=== PATIENT | male | born 1965 | race African-American/Black ===

== ENCOUNTER 2022-03-29 05:46 | Inpatient (IN) ==
[2022-03-29] MEDS ORDERED: VANCOMYCIN INJ 1,000 MG in SODIUM CHLORIDE 0.9% 250 ML IV ONE (06:00)
[2022-03-29 06:34] LABS: INR 0.9; PT Patient Result 10.3 SECS (10.1-12.1); Partial Thromboplastin Time 28.3 SECS (23.7-32.9)
[2022-03-29] MEDS ORDERED: FAMOTIDINE 20 MG TABLET PO ONE (06:34)
[2022-03-29] MEDS ORDERED: GABAPENTIN 400 MG CAPSULE PO ONE (06:34)
[2022-03-29] MEDS ORDERED: DIAZEPAM 5 MG TABLET PO ONE (06:34)
[2022-03-29] MEDS ORDERED: ACETAMINOPHEN 500 MG TABLET PO ONE (06:34)
[2022-03-29] MEDS: LACTATED RINGERS 1,000 ML IV SCH ×2 (06:40→11:02)
[2022-03-29] MEDS ORDERED: BUPIVACAINE SPINAL 0.75% 2 ML AMP SPINAL ONE ×2 (07:02→08:13)
[2022-03-29] MEDS ORDERED: HYDROCORTISONE 100 MG VIAL ONE (07:02)
[2022-03-29] MEDS ORDERED: LIDOCAINE 2% 5 ML VIAL ONE (07:02)
[2022-03-29] MEDS ORDERED: ONDANSETRON 4 MG/2 ML VIAL ONE (07:02)
[2022-03-29] MEDS ORDERED: MIDAZOLAM 2 MG/2 ML VIAL ONE (07:02)
[2022-03-29] MEDS ORDERED: fentaNYL 100 MCG/2 ML VIAL ONE ×3 (07:02→09:14)
[2022-03-29] MEDS ORDERED: SODIUM CHLORIDE 0.9% 100 ML IV ONE (07:03)
[2022-03-29] MEDS ORDERED: buprenorphine HCL 0.3 MG/ML VIAL ONE (07:03)
[2022-03-29] MEDS ORDERED: ROPIVACAINE 0.5% 30 ML VIAL ONE (07:09)
[2022-03-29] MEDS ORDERED: DEXAMETHASONE 4 MG/1 ML VIAL ONE (07:09)
[2022-03-29] MEDS ORDERED: LIDOCAINE 1% 5 ML VIAL ONE (07:09)
[2022-03-29] MEDS ORDERED: TRANEXAMIC ACID 1,000 MG/10 ML VIAL ONE (08:15)
[2022-03-29] MEDS ORDERED: TEMAZEPAM 7.5 MG CAPSULE PO PRN (08:35)
[2022-03-29] MEDS ORDERED: BISACODYL 10 MG SUPP RECTAL PRN (08:35)
[2022-03-29] MEDS ORDERED: PROMETHAZINE 25 MG/1 ML VIAL IM PRN (08:35)
[2022-03-29] MEDS ORDERED: ONDANSETRON 4 MG/2 ML VIAL IV PRN ×2 (08:35→10:25)
[2022-03-29] MEDS ORDERED: diphenhydrAMINE CAP 25 MG CAPSULE PO PRN (08:35)
[2022-03-29] MEDS ORDERED: LACTULOSE 20 GM/30 ML UDCUP PO PRN (08:35)
[2022-03-29] MEDS ORDERED: MORPHINE 2 MG/1 ML SYRINGE IV PRN ×2 (08:35→08:45)
[2022-03-29] MEDS ORDERED: MAGNESIUM HYDROXIDE SUSP 30 ML UDCUP PO PRN (08:35)
[2022-03-29] MEDS ORDERED: ALBUTEROL 2.5 MG/3 ML NEB RESP TX PRN (08:38)
[2022-03-29] MEDS ORDERED: NABUMETONE 500 MG TABLET PO PRN (08:38)
[2022-03-29] MEDS ORDERED: MELOXICAM 7.5 MG TABLET PO PRN (08:38)
[2022-03-29] MEDS ORDERED: PHENYLEPHRINE 1 MG/10 ML SYRINGE IV ONE (09:01)
[2022-03-29] MEDS ORDERED: HYDROmorphone 1 MG/1 ML SYRINGE ONE (10:23)
[2022-03-29] MEDS: HYDROmorphone 1 MG/1 ML SYRINGE IV PRN ×4 (10:27→10:42)
[2022-03-29] MEDS ORDERED: MEPERIDINE 50 MG/1 ML VIAL ONE (10:49)
[2022-03-29] MEDS: MEPERIDINE 25 MG/1 ML VIAL IV PRN ×2 (10:51→11:01)
[2022-03-29] MEDS: FOLIC ACID 1 MG TABLET PO SCH (13:26)
[2022-03-29] MEDS: ceFAZolin 2,000 MG/50 ML DUPLEX IV SCH ×2 (13:27→21:22)
[2022-03-29] MEDS: GABAPENTIN 600 MG TABLET PO SCH ×2 (15:32→22:36)
[2022-03-29] MEDS: predniSONE 5 MG TABLET PO SCH (17:08)
[2022-03-29] MEDS: amLODIPine 10 MG TABLET PO SCH (21:22)
[2022-03-29] MEDS: DOCUSATE SODIUM 100 MG CAPSULE PO SCH (21:23)
[2022-03-29] MEDS: FONDAPARINUX 2.5 MG/0.5 ML SYRINGE SUBCUT SCH (21:23)
[2022-03-30 05:12] LABS: Basophils % 0.2 % (0.0-0.8); Eosinophils # 0.1 10*3/uL (0.0-0.87); Eosinophils % 0.6 % (0.00-10.9); Hematocrit 36.3 VOL% (42.0-52.0); Hemoglobin 11.7 GM/DL (14.0-18.0); Immature Granulocytes % 0.9 %; Immature Granulocytes Absolute 0.11 #; Lymphocytes # 1.6 10*3/uL (1.4-4.0); Lymphocytes % 13.4 % (21.2-54.2); Mean Corpuscular HGB Conc 32.2 GM/DL (32-36); Mean Corpuscular Volume 91.9 FL (87-102); Mean Platelet Volume 11.1 FL (9.6-12.0); Monocytes # 1.6 10*3/uL (0.11-0.8); Neutrophils % 71.9 % (38.7-73.9); Platelet Count 223 T/CUMM (130-400); Red Blood Count 3.95 MC/CUMM (3.8-5.5); Red Cell Distribution Width 15.1 % (9.3-17.3)
[2022-03-30 05:30] LABS: Calcium 8.4 MG/DL (8.5-10.1); Osmolality,Calculated 278.5 MOS/KG (273-304); Potassium 3.4 MMOL/L (3.5-5.1)
[2022-03-30] MEDS: predniSONE 5 MG TABLET PO SCH ×2 (07:35→16:09)
[2022-03-30] MEDS: GABAPENTIN 600 MG TABLET PO SCH ×3 (08:00→20:19)
[2022-03-30] MEDS: FOLIC ACID 1 MG TABLET PO SCH (08:00)
[2022-03-30] MEDS: DOCUSATE SODIUM 100 MG CAPSULE PO SCH ×2 (08:00→20:19)
[2022-03-30] MEDS ORDERED: ACETAMINOPHEN 325 MG TABLET PO PRN (08:36)
[2022-03-30] MEDS: TOFACITINIB 11 MG PO SCH (09:14)
[2022-03-30] MEDS ORDERED: POTASSIUM CHLORIDE 20 MEQ TABLET PO ONE (11:30)
[2022-03-30] MEDS: FONDAPARINUX 2.5 MG/0.5 ML SYRINGE SUBCUT SCH (20:19)
[2022-03-30] MEDS: amLODIPine 10 MG TABLET PO SCH (20:19)
[2022-03-31] MEDS: FOLIC ACID 1 MG TABLET PO SCH (08:34)
[2022-03-31] MEDS: predniSONE 5 MG TABLET PO SCH ×2 (08:34→16:03)
[2022-03-31] MEDS: GABAPENTIN 600 MG TABLET PO SCH ×3 (08:35→21:24)
[2022-03-31] MEDS: DOCUSATE SODIUM 100 MG CAPSULE PO SCH ×2 (08:36→21:24)
[2022-03-31] MEDS: TOFACITINIB 11 MG PO SCH (09:24)
[2022-03-31] MEDS: FONDAPARINUX 2.5 MG/0.5 ML SYRINGE SUBCUT SCH (21:23)
[2022-03-31] MEDS: amLODIPine 10 MG TABLET PO SCH (21:24)
[2022-04-01 07:31] VITALS: BP 149/84
[2022-04-01] MEDS: FOLIC ACID 1 MG TABLET PO SCH (08:10)
[2022-04-01] MEDS: GABAPENTIN 600 MG TABLET PO SCH (08:10)
[2022-04-01] MEDS: DOCUSATE SODIUM 100 MG CAPSULE PO SCH (08:10)
[2022-04-01] MEDS: predniSONE 5 MG TABLET PO SCH (08:10)
[2022-04-01] MEDS: TOFACITINIB 11 MG PO SCH (08:12)
== END 2022-04-01 13:21 | disposition swing bed (61) | DRG 470 ==
LOC: N.OR 05:46 → N.SDSINP 05:48 → N.3E 11:22
PROVIDERS: ADMIT Orthopaedic Surgery; ATTEND Orthopaedic Surgery